=== PATIENT | female | born 1985 | race Caucasian/White ===

== ENCOUNTER 2021-09-11 14:13 | Emergency (ER) | payer BC, SELFPAY ==
[2021-09-11 14:22] VITALS: BP 128/73; PULSE 67; RESP 16; TEMP 36.6; O2SAT 98
--- NOTE | 2021-09-11 14:35 | ED.EAR ---
HPI - Ear Problem General Chief complaint: Upper Respiratory Infection Stated complaint: body aches/ear pain Time Seen by Provider: 09/11/21 14:35 Source: patient Mode of arrival: ambulatory Limitations: no limitations History of Present Illness HPI Narrative: Christiane Fernandez is a 36 yo female with a PMH of who comes to [facility] with complaints of body aches that started yesterday afternoon and sleeping for 17 hours so she left work early yesterday in her office there have been 4 people with COVID flu and strep and so her forced her to come here to be checked Related Data Home Medications Medication Instructions Recorded Confirmed bupropion HCl PO 09/11/21 escitalopram oxalate mg 09/11/21 omeprazole 09/11/21 Allergies Allergy/AdvReac Type Severity Reaction Status Date / Time No Known Allergies Allergy Verified 04/27/18 04:52 Review of Systems Review of Systems: CONSTITUTIONAL: Denies fever, chills, sweats. Fatigue EYES: Denies visual changes, redness, discharge. ENT: Denies rhinorrhea, had congestion, sore throat, otalgia. CARDIOVASCULAR: Denies chest pain, palpitations, edema. RESPIRATORY: Denies dyspnea, wheezing, cough GASTROINTESTINAL: Denies abdominal pain, nausea, vomiting, diarrhea. GENITOURINARY: Denies dysuria, hematuria, abnormal discharge SKIN: Denies rash or itching. NEUROLOGIC: Denies numbness, or focal weakness. PSYCHIATRIC: Denies anxiety or depression. PMFSH Past Medical History Medical History No acute medical problems Social History Social History (Updated 09/11/21 @ 15:07 by Neelam Landon CNP) Smoking status: Former smoker Alcohol intake: current Comments At time of signature, I agree with nursing past medical, surgical, social and family history. There is no relevant family history pertinent to the presenting complaint. Exam Narrative: GENERAL: This is a well-nourished, well-developed patient, in mild distress. Complaining of severe fatigue HEAD: normocephalic, atraumatic. EYES: PERRL. Sclera clear/white. Vision is grossly intact. EARS: External ears normal, Hearing grossly intact. NOSE: External nose normal without nasal discharge, nares without redness, no rhinorrhea. THROAT: Mucous membranes moist, posterior pharynx mild erythema NECK: Neck supple, non-tender CARDIOVASCULAR: Regular rate and rhythm without murmurs, gallops, or rubs. RESPIRATORY: Clear to auscultation. Breath sounds equal bilaterally. No wheezes, rales, or rhonchi. GASTROINTESTINAL: Abdomen soft, non-tender, SKIN: warm, intact with no suspicious lesions or rash, good texture and turgor. NEURO: awake, alert, and oriented to person, place and time. There were no obvious focal neurologic abnormalities. Steady gait EXTREMITIES: Normal range of motion. BACK: Nontender without deformity Course Course Emergency Course: Patient comes for evaluation of symptoms that started yesterday of exhaustion, mild congestion Flu test negative COVID PCR done and will return the return in 2 days Must if positive must abide by [facility] quarantine 5 days, push fluids Use [id number] medication to manage symptoms Level of Care: Express Care Visit Vital Signs Vital signs: Vital Signs Temperature 97.8 F 09/11/21 14:22 Pulse Rate 67 09/11/21 14:22 Respiratory Rate 16 09/11/21 14:22 Blood Pressure 128/73 09/11/21 14:22 Pulse Oximetry 98 09/11/21 14:22 Temperature 97.8 F 09/11/21 14:22 Pulse Rate 67 09/11/21 14:22 Respiratory Rate 16 09/11/21 14:22 Blood Pressure 128/73 09/11/21 14:22 Pulse Oximetry 98 09/11/21 14:22 Medical Decision Making Differential Diagnosis Differential Diagnosis: COVID versus viral syndrome versus flu versus generalized fatigue Vital Signs Vital Signs: Vital Signs Temperature 97.8 F 09/11/21 14:22 Pulse Rate 67 09/11/21 14:22 Respiratory Rate 16 09/11/21 14:22 Blood Pressu
[2021-09-12 21:11] LABS: SARS-CoV-2 RNA PCR Negative
== END 2021-09-11 15:14 | disposition home or self-care (01) ==
PROVIDERS: Emergency Provider Nurse Practitioner; PCP Emergency Medicine
DX: Z20.822 Contact with and (suspected) exposure to COVID-19 (principal); R52 Pain, unspecified; H92.09 Otalgia, unspecified ear; Z87.891 Personal history of nicotine dependence
CPT/HCPCS: 87804; 99213; C9803; G0463; U0003; U0005

== ENCOUNTER 2022-04-29 15:49 | Outpatient (CLI) | payer BC, SELFPAY ==
[2022-05-01 14:27] LABS: DHEA-Sulfate 154 mcg/dL (23-266)
[2022-05-01 20:13] LABS: Progesterone 0.4 ng/mL (***); Prolactin 9.8 ng/mL (***)
[2022-05-02 15:07] LABS: Testosterone Free 4.5 pg/mL (0.1-6.4); Testosterone Total 33 ng/dL (2-45)
== END 2022-04-29 15:50 | disposition home or self-care (01) ==
LOC: ANHLAB 15:54
PROVIDERS: PCP Emergency Medicine; Visit Provider Obstetrics & Gynecology
DX: L68.0 Hirsutism (principal)
CPT/HCPCS: 36415; 82627; 83498; 84144; 84146; 84402; 84403

== ENCOUNTER 2022-08-11 15:06 | Emergency (ER) | payer BC, SELFPAY ==
[2022-08-11 15:20] VITALS: BP 110/70; PULSE 95; RESP 12; TEMP 36.3; O2SAT 98
--- NOTE | 2022-08-11 16:19 | ED.URI ---
HPI - URI/Sore Throat General Chief Complaint: Upper Respiratory Infection Stated Complaint: Sore Throat, Bodyaches, Ears Source: patient and family Mode of arrival: ambulatory Limitations: no limitations History of Present Illness HPI Narrative: 36-year-old female presents to [facility] With complaints of body aches, runny nose, nasal congestion sore throat for past 2-3 days. Patient has been taking [id number]-[id number] DayQuil and NyQuil with minimal relief. patient is a nonsmoker. Patient has cough, shortness of breath, wheezing, nausea, vomiting or diarrhea. MD elicited complaint: cough, sore throat, rhinorrhea and nasal congestion Onset (ago): day(s) (2-3) Able to tolerate fluids by mouth: Yes Exacerbating factors: swallowing Relieving factors: nothing Treatments prior to arrival: acetaminophen, ibuprofen and cold medicine Related Data Home Medications Medication Instructions Recorded Confirmed bupropion HCl 150 mg tablet,12 hr 150 mg PO BID 09/11/21 08/11/22 sustained-release escitalopram oxalate 20 mg tablet 20 mg PO DAILY 09/11/21 08/11/22 omeprazole 20 mg capsule,delayed 20 mg PO DAILY 09/11/21 08/11/22 release Allergies Allergy/AdvReac Type Severity Reaction Status Date / Time No Known Allergies Allergy Verified 08/11/22 15:15 Review of Systems Constitutional: Constitutional: Denies fatigue, Denies fever(s) and Denies weakness ENT: Reports nasal congestion and Reports sore throat Comments: runny nose Respiratory: Respiratory: Denies cough, Denies dyspnea and Denies wheezing Gastrointestinal: Gastrointestinal: Denies diarrhea, Denies nausea and Denies vomiting Integumentary/Breasts: Skin/Breast: Denies rash Neurologic: Denies vertigo and Denies dizziness Allergic/Immunologic: Allergic/Immunologic: Denies lip swelling, Denies throat swelling and Denies tongue swelling PMFSH Past Medical History Medical History No acute medical problems Tubal ligation evaluation Surgical History Surgical History H/O gynecological procedure [place]/bx-benign H/O gynecological procedure Mirena IUD insertion and removal of IUD Family History Family History Other Carcinoma of colon Social History Social History Smoking status: Former smoker Alcohol intake: current Substance use: never Substance use type: does not use Gender identity (if verbalized by the patient): Female Comments At time of signature, I agree with nursing past medical, surgical, social and family history. There is no relevant family history pertinent to the presenting complaint. Exam Const: General: healthy appearing, no acute distress and alert Nutritional Appearance: well nourished Orientation/consciousness: patient oriented x3 Limitations: no limitations HENMT: Head: normal to inspection Ears: external ears normal and TM's normal bilaterally Face/Nose/Sinus: Normal external nose present and Normal nares present Face and sinus: normal facial exam and sinuses nontender Mouth: Yes Normal oral and palatal mucosa present and Yes moist mucous membranes Throat: uvula midline Other: moderate erythema noted to posterior pharynx. Eyes: Conjunctivae: conjunctivae normal Neck: Neck: normal visual inspection Resp: Effort & Inspection: normal respiratory effort and not labored Auscultation: clear to auscultation bilaterally, no crackles, no rales, no rhonchi and no wheezes Cardio: Rate: regular rate Rhythm: regular rhythm Heart sounds: no murmurs Skin: General skin exam: normal color Rashes: no rashes Wounds: no wounds Neuro: Speech: normal speech Psych: Affect: normal affect Attitude: cooperative Course Course Level of Care: Express Care Visit Vital Signs Vital signs: V
== END 2022-08-11 16:42 | disposition home or self-care (01) ==
PROVIDERS: Emergency Provider Nurse Practitioner Family; PCP Emergency Medicine
DX: J02.9 Acute pharyngitis, unspecified (principal); J06.9 Acute upper respiratory infection, unspecified; Z20.822 Contact with and (suspected) exposure to COVID-19; Z87.891 Personal history of nicotine dependence
CPT/HCPCS: 87426; 87804; 99213; C9803; G0463

== ENCOUNTER 2023-06-02 12:28 | Emergency (ER) | payer BC, SELFPAY ==
--- NOTE | 2023-06-02 12:30 | ED.URI ---
HPI - URI/Sore Throat General Chief Complaint: Upper Respiratory Infection Stated Complaint: Sore Throat/Ears Irritation Time Seen by Provider: 06/02/23 12:30 Source: patient Mode of arrival: ambulatory Limitations: no limitations History of Present Illness HPI Narrative: Patient is a 37-year-old female who presents with sore throat. Patient had an endoscopy yesterday. Patient states her throat was a little sore the day before but was COVID negative. Also having mild ear irritation. Denies any fever, chills, nausea, vomiting, diarrhea, congestion, cough. Related Data Home Medications Medication Instructions Recorded Confirmed bupropion HCl 150 mg tablet,12 hr 150 mg PO BID 09/11/21 08/11/22 sustained-release escitalopram oxalate 20 mg tablet 20 mg PO DAILY 09/11/21 08/11/22 omeprazole 20 mg capsule,delayed 20 mg PO DAILY 09/11/21 08/11/22 release phentermine 37.5 mg tablet mg 06/02/23 Allergies Allergy/AdvReac Type Severity Reaction Status Date / Time No Known Allergies Allergy Verified 06/02/23 12:37 Review of Systems Review of Systems: All systems reviewed & are unremarkable except as noted in HPI and below Constitutional: Constitutional: Denies body ache(s), Denies chills, Denies fatigue, Denies fever(s), Denies headache(s), Denies malaise and Denies weakness Eyes: Eyes: Denies blurry vision, Denies itchy eyes and Denies loss of vision ENT: Reports otalgia, Denies headache(s), Denies nasal congestion, Denies sinus pain and Reports sore throat Cardiovascular: Cardiovascular: Denies chest pain, Denies irregular heart rhythm and Denies dyspnea Respiratory: Respiratory: Denies cough and Denies dyspnea Gastrointestinal: Gastrointestinal: Denies abdominal pain, Denies diarrhea, Denies nausea and Denies vomiting Musculoskeletal: Musculoskeletal: Denies back pain, Denies myalgias and Denies arthralgias Integumentary/Breasts: Skin/Breast: Denies pruritus and Denies rash Neurologic: Denies headache(s), Denies loss of vision and Denies weakness Psychiatric: Psychiatric: Reports no additional psychiatric complaints Endocrine: Endocrine: Denies fatigue Allergic/Immunologic: Allergic/Immunologic: Denies itchy eyes PMFSH Past Medical History Medical History No acute medical problems Tubal ligation evaluation Surgical History Surgical History H/O gynecological procedure [place]/bx-benign H/O gynecological procedure Mirena IUD insertion and removal of IUD Family History Family History Other Carcinoma of colon Social History Social History Smoking status: Former smoker Alcohol intake: current Substance use: never Substance use type: does not use Living arrangements: with family Occupation/Education: occupation Gender identity (if verbalized by the patient): Female Comments At time of signature, agree with nursing past medical, surgical, social and family history. There is no relevant family history pertinent to the presenting complaint. Exam Const: General: cooperative, healthy appearing, comfortable, no acute distress and well nourished Nutritional Appearance: well nourished Orientation/consciousness: patient oriented x3 Limitations: no limitations HENMT: Head: normal to inspection, normocephalic and atraumatic Ears: hearing grossly normal bilaterally, external ears normal, TM's normal bilaterally, EAC's normal and no periauricular adenopathy Face/Nose/Sinus: Normal external nose present, Normal nasal mucous membranes and turbinates present, normal facial exam, sinuses nontender and face symmetric Face and sinus: normal facial exam, sinuses nontender and face symmetric Mouth: Yes Normal oral and palatal mucosa present, Yes lip normal, Yes tongue n
[2023-06-02 12:37] VITALS: BP 113/64; PULSE 87; RESP 16; TEMP 37; O2SAT 99
[2023-06-02 12:39] VITALS: BP 113/64; PULSE 87; RESP 16; TEMP 37; O2SAT 99
== END 2023-06-02 13:10 | disposition home or self-care (01) ==
PROVIDERS: Emergency Provider Nurse Practitioner Family; PCP Emergency Medicine
DX: J02.9 Acute pharyngitis, unspecified (principal); Z87.891 Personal history of nicotine dependence
CPT/HCPCS: 87081; 87880; 99213; G0463

== ENCOUNTER 2023-11-25 08:25 | Outpatient (CLI) | payer BC, SELFPAY ==
[2023-11-25 09:34] LABS: Beta HCG Quantitative < 2.39 mIU/ML
== END 2023-11-25 08:26 | disposition home or self-care (01) ==
LOC: ANHLAB 08:27
PROVIDERS: PCP Emergency Medicine; Visit Provider Obstetrics & Gynecology
DX: N92.6 Irregular menstruation, unspecified (principal)
CPT/HCPCS: 36415; 84702

== ENCOUNTER 2024-04-15 13:01 | Emergency (ER) | payer BC, SELFPAY ==
--- NOTE | ~2024-04-15 | XR_ITS ---
EXAMINATION: XR elbow RT min 3V DATE: 04/15/2024 13:24 INDICATION: Right elbow pain. TECHNIQUE: 4 views of right elbow were obtained. COMPARISON: None. FINDINGS: Alignment is normal. No fracture. Joint spaces are normal. No elbow joint effusion. IMPRESSION: 1. Normal right elbow. Reviewed, dictated and finalized at location A. IMPRESSION: 1. Normal right elbow.
--- NOTE | ~2024-04-15 | XR_ITS ---
EXAMINATION: [id number] DATE: 04/15/2024 13:24 INDICATION: Anterior right knee pain. Fall. TECHNIQUE: 2 views of right knee were obtained. COMPARISON: None. FINDINGS: Bone alignment is normal. No fracture. Joint spaces are normal. No knee joint effusion. IMPRESSION: 1. Normal right knee. Reviewed, dictated and finalized at location A. IMPRESSION: 1. Normal right knee.
--- NOTE | 2024-04-15 13:04 | ED.UPPEXIN ---
HPI - Extremity Injury (Upper) General Chief Complaint: Extremity Injury, Upper Stated Complaint: Right Elbow Pain Time Seen by Provider: 04/15/24 13:04 Source: patient Mode of arrival: ambulatory Limitations: no limitations History of Present Illness HPI narrative: Christiane is a 38-year-old female patient presenting to the clinic today with complaints of right elbow pain S started over the weekend. She reports she fell on Thursday and injured her right elbow and then fell on Thursday and injured her right anterior knee and hit her elbow once again. Is having pain to the lateral and dorsal elbow as well as pain to the anterior knee. Pain to the knee is worse when walking. Pain is worse to the elbow when typing and lifting. Related Data Home Medications Medication Instructions Recorded Confirmed bupropion HCl 150 mg tablet,12 hr 150 mg PO BID 09/11/21 04/15/24 sustained-release escitalopram oxalate 20 mg tablet 20 mg PO DAILY 09/11/21 04/15/24 omeprazole 20 mg capsule,delayed 40 mg PO DAILY 09/11/21 04/15/24 release levonorgestrel 21 mcg/24 hr (up to 1 device intrauterine ONCE 11/26/23 04/15/24 8 years) 52 mg intrauterine device (Mirena) semaglutide (weight loss) 1.7 1.7 mg subcut WE 04/15/24 04/15/24 mg/0.75 mL subcutaneous pen injector (Wegovy) Allergies Allergy/AdvReac Type Severity Reaction Status Date / Time No Known Allergies Allergy Verified 04/15/24 13:03 Review of Systems Review of Systems: Pertinent positives per HPI. Patient denies any fever, chills, rash, headache, visual changes, dizziness, cough, runny nose, sore throat, shortness of breath, chest pain, palpitations, nausea, vomiting, diarrhea, constipation, abdominal pain, or any urinary issues. [facility] Past Medical History Medical History Esophageal abnormality ablation No acute medical problems Tubal ligation evaluation Surgical History Surgical History H/O gynecological procedure [place]/bx-benign H/O gynecological procedure Mirena IUD insertion and removal of IUD Family History Family History Mother Liver disease Other Carcinoma of colon Social History Social History Smoking status: Former smoker Tobacco type: e-cigarettes/vaping Alcohol intake: never Substance use: never Substance use type: does not use Do You Feel Safe in your Home?: Yes Lack of Transportation: No Lack of Food: Never True Current Housing: I Have Housing Concerned About Future Housing: No Difficulty Paying Gas/Electric Bills: No Difficulty Paying for Meds: No Currently Unemployed: No Education: Associate Degree Difficulty w/ Childcare or Family Care: No Living arrangements: with family Occupation/Education: occupation Gender identity (if verbalized by the patient): Female Sexual Orientation (if Verbalized by the Patient): Straight or Heterosexual Comments At the time of my signature, I reviewed and agree with the nursing past medical, surgical, social, and family history. There is no relevant family history pertinent to the patient complaint. Exam Narrative: General: Well-developed, well nourished, in no apparent distress Head: Normocephalic, atraumatic. Cardio: Regular rate and rhythm, s1 and s2 normal, no murmur appreciated. Resp: Clear to auscultation bilaterally, no rhonchi, rales, wheezing or rubs. Musculoskeletal: No deformity,faint brusing noted to the posterior proximal forearm, tender to palpation over the right anterior knee, pain with flexion with the knee and going in a squatting position, tenderness to palpation over the dorsal and lateral elbow, grossly normal range of motion, muscle strength strong and equal, peripheral pulse strong, no edema,
[2024-04-15 13:10] VITALS: BP 106/67; PULSE 84; RESP 16; TEMP 37.1; O2SAT 100
== END 2024-04-15 13:50 | disposition home or self-care (01) ==
PROVIDERS: Emergency Provider Nurse Practitioner Family; PCP Emergency Medicine
DX: S83.91XA Sprain of unspecified site of right knee, initial encounter (principal); S53.401A Unspecified sprain of right elbow, initial encounter; S50.11XA Contusion of right forearm, initial encounter; W19.XXXA Unspecified fall, initial encounter; Z87.891 Personal history of nicotine dependence
CPT/HCPCS: 73080; 73560; 99214; G0463